=== PATIENT | male | born 2005 | race African-American/Black ===

== ENCOUNTER 2023-05-07 19:47 | Emergency (ER) | payer OTHER ==
[2023-05-07] MEDS ORDERED: Ketorolac Tromethamine 30 MG/ML VIAL ONE (21:03)
== END 2023-05-07 21:24 | disposition home or self-care (01) ==
LOC: CSHERS 19:47
DX: M62.838 Other muscle spasm (principal); F17.210 Nicotine dependence, cigarettes, uncomplicated
CPT/HCPCS: 96372; 99283; J1885